=== PATIENT | male | born 1975 | race Two or more races ===

== ENCOUNTER 2016-03-19 19:25 | Emergency (ER) | payer OTHER ==
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
[2016-03-19 19:46] VITALS: BP 130/86
[2016-03-19] MEDS ORDERED: OXYCODONE-ACETAMINOPHEN 5-325 MG TABLET PO ONE (23:18)
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
[2016-03-19] MEDS ORDERED: HYDROCODONE/ACETAMINOPHEN 5-325 MG 6 TAB/DSPK ONE (23:36)
== END 2016-03-19 23:45 | disposition home or self-care (01) ==
LOC: ER 19:25
DX: S90.111A Contusion of right great toe without damage to nail, initial encounter (principal); S90.31XA Contusion of right foot, initial encounter; V29.9XXA Motorcycle rider (driver) (passenger) injured in unspecified traffic accident, initial encounter
CPT/HCPCS: 99283